=== PATIENT | female | born 1995 | race African-American/Black ===

== ENCOUNTER 2020-05-18 07:52 | Emergency (ER) | payer OTHER ==
[~2020-05-18] VITALS: Ht 167.6 cm; Wt 65.8 kg
[2020-05-18] MEDS ORDERED: IRON18 M1 PO (08:06)
[2020-05-18] MEDS ORDERED: PNV 29-1 TABLE1 EACH PO (08:06)
[2020-05-18 08:39] VITALS: BP 91/49
== END 2020-05-18 08:35 | disposition short-term general hospital (02) ==
LOC: ER 07:52
DX: O26.892 Other specified pregnancy related conditions, second trimester (principal); R10.30 Lower abdominal pain, unspecified; Z79.899 Other long term (current) drug therapy; Z3A.25 25 weeks gestation of pregnancy